=== PATIENT | male | born 1980 ===

== ENCOUNTER 2017-12-20 23:24 | Emergency (ER) | payer SELFPAY ==
[2017-12-20 23:53] VITALS: O2SAT 97
--- NOTE | 2017-12-21 00:27 | C.PDOC ---
History Of Present Illness 37 y/o male presents to the ED for evaluation of increased anxiety. He reports episodes of shaking, palpations, chest wall tightness and "feeling like something bad is going to happen" over the last two weeks ago. 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 The patient states he feels better now. He admits to having a Hx of depression but he denies any Hx of panic attacks. The patient reports increased stress due to work over the last month and poor sleep over the past two weeks. He denies any fever, swelling, cough, SI, HI or visual/auditory hallucinations. Time Seen by Provider: 12/20/17 23:39 Chief Complaint (Nursing): Anxiety History Per: Patient History/Exam Limitations: no limitations Onset/Duration Of Symptoms: Days Current Symptoms Are (Timing): Still Present Modifying Factor(s): None Associated Symptoms: Anxiety. denies: Suicidal Thoughts, Suicidal Plan Recent travel outside of the [place]: No Past Medical History Reviewed: Historical Data, Nursing Documentation, Vital Signs Vital Signs: Last Vital Signs Temp 98.2 F 12/21/17 01:14 Pulse 83 12/21/17 01:14 Resp 16 12/21/17 01:14 BP 123/73 12/21/17 01:14 Pulse Ox 97 12/21/17 01:14 - Medical History PMH: Depression Surgical History: No Surg Hx Family History: States: Hypertension Other Family History: Cancer - Social History Hx Tobacco Use: No Hx Alcohol Use: No Hx Substance Use: No Review Of Systems Except As Marked, All Systems Reviewed And Found Negative. Constitutional: Negative for: Fever Cardiovascular: Positive for: Chest Pain (tightness), Palpitations Neurological: Positive for: Other (shaking) Psych: Positive for: Anxiety, Other (poor sleep). Negative for: Suicidal ideation Physical Exam - Physical Exam Appears: Other (Anxious mood and affect ) Skin: Warm, Dry Head: Normacephalic, Tenderness Eye(s): bilateral: PERRL, EOMI Oral Mucosa: Moist Throat: No Erythema, No Exudate Neck: Normal ROM, Trachea Midline Lymphatic: No Adenopathy Chest: Symmetrical, No Tenderness Cardiovascular: Rhythm Regular, No Murmur Respiratory: Normal Breath Sounds, No Wheezing Gastrointestinal/Abdominal: Soft, No Tenderness Back: Normal Inspection, No Muscle Spasm Extremity: Normal ROM, No Deformity Neurological/Psych: Oriented x3, Normal Motor, Normal Sensation ED Course And Treatment - Laboratory Results Result Diagrams: 12/21/17 00:18 12/21/17 00:18 Lab Interpretation: Normal ECG: Interpreted By Me ECG Rhythm: Sinus Rhythm, R BBB ECG Interpretation: Normal O2 Sat by Pulse Oximetry: 97 (RA) Pulse Ox Interpretation: Normal Medical Decision Making Medical Decision Making: Impression: panic attack , anxiety differential diagnoses include but are not limited to: thyroid disorder, electrolyte decrease, acute stress reaction Labs unremarkable. Crisis assisted with resources for outpatient followup. 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 - Scribe Statement The provider has reviewed the documentation as recorded by the Scribe (Barby Gross) All medical record entries made by the Scribe were at my direction and personally dictated by me. I have reviewed the chart and agree that the record accurately reflects my personal performance of the history, physical exam, medical decision making, and the department course for this patient. I have also personally directed, reviewed, and agree with the discharge instructions and disposition.
[2017-12-21 00:46] LABS: BASO % 0.4 % (0.0-2.0); EOS # 0.1 K/uL (0.0-0.7); EOS % 0.9 % (0.0-4.0); HEMOGLOBIN 13.9 g/dL (12.0-18.0); LYMPH # 2.3 K/uL (1.0-4.3); LYMPH % 21.9 % (20.0-40.0); MEAN CELL VOLUME 86.9 fL (80.0-94.0); MEAN CORPUSCULAR HEMOGLOBIN 30.1 pg (27.0-31.0); MEAN CORPUSCULAR HGB CONC 34.6 g/dL (33.0-37.0); MEAN PLATELET VOLUME 9.5 fL (7.2-11.7); MONO # 0.6 K/uL (0.0-0.8); MONO % 6.2 % (0.0-10.0); NEUT # 7.4 K/uL (1.8-7.0); NEUT % 70.6 % (50.0-75.0); NRBC % 0.1 % (0.0-2.0); RBC 4.63 Mil/uL (4.40-5.90); RED CELL DISTRIBUTION WIDTH 12.8 % (11.5-14.5); WHITE BLOOD COUNT 10.5 K/uL (4.8-10.8)
[2017-12-21 00:57] LABS: ALB/GLOB RATIO 1.8 (1.0-2.1); ALBUMIN 4.6 g/dL (3.5-5.0); ALT/SGPT 47 U/L (21-72); AST/SGOT 21 U/L (17-59); BLOOD UREA NITROGEN 26 mg/dL (9-20); CALCIUM 9.3 mg/dl (8.6-10.4); GFR NON-AFRICAN AMERICAN > 60
[2017-12-21 01:15] VITALS: BP 123/73; PULSE 83; RESP 16; TEMP 98.2
--- NOTE | 2017-12-22 22:43 | CARD ---
APPROVED REPORT Date of service: 12/20/2017 EKG Measurement Heart [id number] NM [id number] [id number] <Conclusion> Normal sinus rhythm Left axis deviation Incomplete right bundle branch block Abnormal ECG
== END 2017-12-21 01:15 | disposition home or self-care (01) ==
LOC: C.ER 23:24
DX: F43.9 Reaction to severe stress, unspecified (principal); F41.9 Anxiety disorder, unspecified

== ENCOUNTER 2018-01-26 14:22 | Emergency (ER) | payer OTHER ==
--- NOTE | 2018-01-26 16:43 | C.PDOC ---
History Of Present Illness 37 year old male presents to the ED complaining of right sided chest pain that extends to his right lateral thorax for two days worsening over the past day. He denies any heavy lifting, recent travel, recent surgery, recent trauma/injury, leg swelling, calf tenderness or skin rash. The patient admits to having one episode of hemoptysis 2 weeks ago that resolved and he also admits to occasional SOB. Time Seen by Provider: 01/26/18 15:59 Chief Complaint (Nursing): Chest Pain History Per: Patient History/Exam Limitations: no limitations Onset/Duration Of Symptoms: Days Current Symptoms Are (Timing): Still Present Quality: Sharp, "Pain" Recent travel outside of the [place]: No Past Medical History Reviewed: Historical Data, Nursing Documentation, Vital Signs Vital Signs: Last Vital Signs Temp 98.7 F 01/26/18 14:27 Pulse 93 H 01/26/18 14:27 Resp 20 01/26/18 14:27 BP 135/90 01/26/18 14:27 Pulse Ox 97 01/26/18 14:27 - Medical History PMH: Depression Family History: States: Hypertension - Social History Hx Tobacco Use: No Hx Alcohol Use: No Hx Substance Use: No Review Of Systems Except As Marked, All Systems Reviewed And Found Negative. Constitutional: Negative for: Fever Cardiovascular: Positive for: Chest Pain (right sided) Respiratory: Positive for: Shortness of Breath, Other (one episode of hemoptysis that resolved on its own) Skin: Negative for: Rash Physical Exam - Physical Exam Additional Physical Exam Comments: Constitutional: No acute distress. Head: Normocephalic. Atraumatic. Eyes: PERRL. ENT: Moist mucous membranes. Neck: Supple. Cardiovascular: Regular rate. Radial pulse 2+ bilaterally. Chest: Right-sided digitally reproducible chest tenderness Respiratory: Clear to auscultation bilaterally. GI: Soft. Nontender. Nondistended. Back: No CVA tenderness. Musculoskeletal: No tenderness or swelling of extremities. Skin: No rash. Neurologic: Alert, no focal deficit. ED Course And Treatment - Laboratory Results Result Diagrams: 01/26/18 16:51 01/26/18 16:51 O2 Sat by Pulse Oximetry: 97 (RA) Pulse Ox Interpretation: Normal - Other Rad Chest X-Ray: Viewed By Me Interpretation: IMPRESSION: Mild venous congestion. Small nodular density at the right lung base may represent confluence of shadows with ribs and vessels. Medical Decision Making Medical Decision Making: EKG NSR 88 bpm, no ST elevations, right bundle morphology with narrow QRS Impression: 37 year old male presents to the ED complaining of right sided chest pain that extends to his right lateral thorax for two days worsening over the past day Plan: -EKG -CK-MB -CMP -Troponin I -CBC -D Dimer -Chest X-Ray -Toradol Well's score 1. D dimer negative. Discharged home, continue NSAIDs, f/u PMD, return to ED for worsening pain, fever, dyspnea, vomiting, or any other problem. Disposition - Disposition Disposition: HOME/ ROUTINE Disposition Time: 17:35 Condition: STABLE Prescriptions: Ibuprofen [Motrin] 600 mg PO Q6 #25 tab Instructions: Costochondritis (DC) Forms: [facility] (Thai) - Clinical Impression Clinical Impression: Chest wall pain - Scribe Statement The provider has reviewed the documentation as recorded by the Scribe (Barby delatorre) Provider Attestation: All medical record entries made by the Scribe were at my direction and personally dictated by me. I have reviewed the chart and agree that the record accurately reflects my personal performance of the history, physical exam, medical decision making, and the department course for this patient. I have also personally directed, reviewed, and agree with the discharge instructions and disposition.
[2018-01-26 16:55] LABS: BASO # 0.1 K/uL (0.0-0.2); BASO % 0.8 % (0.0-2.0); EOS # 0.1 K/uL (0.0-0.7); EOS % 1.2 % (0.0-4.0); HEMOGLOBIN 14.4 g/dL (12.0-18.0); LYMPH # 2.5 K/uL (1.0-4.3); LYMPH % 24.6 % (20.0-40.0); MEAN CELL VOLUME 88.6 fL (80.0-94.0); MEAN CORPUSCULAR HEMOGLOBIN 29.7 pg (27.0-31.0); MEAN CORPUSCULAR HGB CONC 33.6 g/dL (33.0-37.0); MEAN PLATELET VOLUME 8.8 fL (7.2-11.7); MONO # 0.7 K/uL (0.0-0.8); MONO % 6.4 % (0.0-10.0); NEUT # 6.9 K/uL (1.8-7.0); RBC 4.86 Mil/uL (4.40-5.90); RED CELL DISTRIBUTION WIDTH 13.7 % (11.5-14.5); WHITE BLOOD COUNT 10.3 K/uL (4.8-10.8)
[2018-01-26 17:15] LABS: ALB/GLOB RATIO 1.4 (1.0-2.1); ALBUMIN 4.4 g/dL (3.5-5.0); ALT/SGPT 41 U/L (21-72); AST/SGOT 32 U/L (17-59); BLOOD UREA NITROGEN 22 mg/dL (9-20); CALCIUM 9.5 mg/dl (8.6-10.4); GFR NON-AFRICAN AMERICAN > 60
[2018-01-26 17:27] LABS: CK-MB 0.28 ng/mL (0.0-3.38)
--- NOTE | 2018-01-26 17:29 | RAD ---
Date of service: 01/26/2018 HISTORY: Right sided chest pain COMPARISON: 08/09/2012 TECHNIQUE: Chest PA and lateral FINDINGS: LUNGS: Mild venous congestion. Small nodular density at the right lung base may represent confluence of shadows with ribs and vessels. PLEURA: No significant pleural effusion identified. No pneumothorax apparent. CARDIOVASCULAR: No atherosclerotic calcification present Normal. OSSEOUS STRUCTURES: No significant abnormalities. VISUALIZED UPPER ABDOMEN: Normal. OTHER FINDINGS: None. IMPRESSION: Mild venous congestion. Small nodular density at the right lung base may represent confluence of shadows with ribs and vessels.
[2018-01-26 17:55] VITALS: BP 129/92; PULSE 81; RESP 15; TEMP 98; O2SAT 99
--- NOTE | 2018-01-29 19:33 | CARD ---
APPROVED REPORT Date of service: 01/26/2018 EKG Measurement Heart [id number] OR 160P56 [id number] <Conclusion> Normal sinus rhythm Left axis deviation Incomplete right bundle branch block Abnormal ECG
== END 2018-01-26 17:55 | disposition home or self-care (01) ==
LOC: C.ER 14:22
DX: R07.89 Other chest pain (principal)
CPT/HCPCS: 71046; 80053; 82550; 82553; 84484; 85025; 85378; 93005; 96374; 99284; J1885

== ENCOUNTER 2018-06-20 09:25 | Emergency (ER) | payer OTHER ==
[2018-06-20 09:45] VITALS: BP 143/89; PULSE 81; RESP 21; TEMP 99.1; O2SAT 99
--- NOTE | 2018-06-20 09:57 | C.PDOC ---
History Of Present Illness 37 year old male presents to the ED for evaluation of swelling and mass to left upper eyelid. Patient reports feeling a lump to the area for one week, and now states his eyelid is starting to become heavy. Patient denies fever, chills, eye pain, blurry vision, redness, tearing or trauma to the area. Time Seen by Provider: 06/20/18 09:43 Chief Complaint (Nursing): Eye Problem History Per: Patient History/Exam Limitations: no limitations Onset/Duration Of Symptoms: Days Current Symptoms Are (Timing): Still Present Quality: denies: "Pain" Associated Symptoms: Swelling. denies: Pain, Decreased Vision Additional History Per: Patient Past Medical History Reviewed: Historical Data, Nursing Documentation, Vital Signs Vital Signs: Last Vital Signs Temp 99.1 F 06/20/18 09:41 Pulse 81 06/20/18 09:41 Resp 21 06/20/18 09:41 BP 143/89 06/20/18 09:41 Pulse Ox 99 06/20/18 09:41 - Medical History PMH: Depression Surgical History: No Surg Hx Family History: States: Hypertension - Social History Hx Tobacco Use: No Hx Alcohol Use: No Hx Substance Use: No - Immunization History Hx Tetanus Toxoid Vaccination: No Hx Influenza Vaccination: No Hx Pneumococcal Vaccination: No Review Of Systems Constitutional: Negative for: Fever, Chills Eyes: Positive for: Other (left upper eyelid swelling ). Negative for: Pain, Vision Change Physical Exam - Physical Exam Appears: Non-toxic, No Acute Distress Skin: Normal Color, Warm, Dry Head: Atraumatic, Normacephalic Eye(s): bilateral: PERRL, EOMI, right: Normal Inspection, left: Other (pea-sized mass to the lateral aspect of upper eyelid. no conjunctival injection ) Neurological/Psych: Normal Speech, Normal Cognition ED Course And Treatment O2 Sat by Pulse Oximetry: 99 (on RA) Pulse Ox Interpretation: Normal Disposition Counseled Patient/Family Regarding: Diagnosis, Need For Followup, Rx Given - Disposition Referrals: [facility] at [facility] [Outside] Horace Van MD [Staff Provider] - Disposition: HOME/ ROUTINE Disposition Time: 09:55 Condition: STABLE Additional Instructions: La receta se envio al [facility] [address] Prescriptions: Bacitracin [Bacitracin Opht OINT] 1 applic OS TID #1 tube Instructions: Stye (Hordeolum) Forms: Gen Discharge Inst Ivorian, [facility] (Ivorian), Work Excuse - POA Present On Arrival: None - Clinical Impression Clinical Impression: Hordeolum externum (stye) - Scribe Statement The provider has reviewed the documentation as recorded by the Scribe (Maribell hdz) Provider Attestation: All medical record entries made by the Scribe were at my direction and personally dictated by me. I have reviewed the chart and agree that the record accurately reflects my personal performance of the history, physical exam, medical decision making, and the department course for this patient. I have also personally directed, reviewed, and agree with the discharge instructions and disposition.
== END 2018-06-20 10:38 | disposition home or self-care (01) ==
LOC: C.ER 09:25
DX: H00.014 Hordeolum externum left upper eyelid (principal)

== ENCOUNTER 2018-09-03 01:08 | Emergency (ER) | payer SELFPAY ==
[2018-09-03 01:39] VITALS: RESP 16; O2SAT 98
--- NOTE | 2018-09-03 02:24 | C.PDOC ---
History Of Present Illness 37 year old male presents to the ED for evaluation of depression and SI. Patient reports his left him for another man and is suing him for child support. Patient became angry and wanted to kill himself, patient had no plan. Patient denies HI, hallucinations, other medical complaints at this time. Time Seen by Provider: 09/03/18 01:27 Chief Complaint (Nursing): Psychiatric Evaluation History Per: Patient, EMS History/Exam Limitations: no limitations Onset/Duration Of Symptoms: Days Current Symptoms Are (Timing): Still Present Associated Symptoms: Depression, Suicidal Thoughts. denies: Suicidal Plan Recent travel outside of the [place]: No Additional History Per: Patient, EMS Past Medical History Reviewed: Historical Data, Nursing Documentation, Vital Signs Vital Signs: Last Vital Signs Temp 98.3 F 09/03/18 01:26 Pulse 101 H 09/03/18 01:26 Resp 16 09/03/18 01:26 BP 120/83 09/03/18 01:26 Pulse Ox 98 09/03/18 01:26 Primary Care Provider: FAMILY PROVIDER,NO - Medical History PMH: Depression Surgical History: No Surg Hx Family History: States: Hypertension - Social History Hx Tobacco Use: No Hx Alcohol Use: No Hx Substance Use: No - Immunization History Hx Tetanus Toxoid Vaccination: No Hx Influenza Vaccination: No Hx Pneumococcal Vaccination: No Review Of Systems Constitutional: Negative for: Fever, Chills Eyes: Negative for: Vision Change Cardiovascular: Negative for: Chest Pain Respiratory: Negative for: Shortness of Breath Gastrointestinal: Negative for: Vomiting, Abdominal Pain Skin: Negative for: Rash Psych: Positive for: Depression, Suicidal ideation Physical Exam - Physical Exam Appears: Non-toxic, No Acute Distress Skin: Normal Color, Warm, Dry Head: Atraumatic, Normacephalic Eye(s): bilateral: Normal Inspection Neck: Normal ROM, Supple Chest: Symmetrical Cardiovascular: Rhythm Regular Respiratory: Normal Breath Sounds, No Rales, No Rhonchi, No Wheezing Extremity: Bilateral: Atraumatic, Normal ROM Neurological/Psych: Oriented x3, Normal Speech, Normal Cognition Gait: Steady ED Course And Treatment - Laboratory Results Result Diagrams: 09/03/18 02:43 09/03/18 02:43 O2 Sat by Pulse Oximetry: 98 (ON RA) Pulse Ox Interpretation: Normal Medical Decision Making Medical Decision Making: Plan: * Labs * UA * Crisis * 1:1 Obs Disposition Counseled Patient/Family Regarding: Studies Performed, Diagnosis, Need For Followup - Disposition Referrals: [facility] [Outside] Disposition: HOME/ ROUTINE Disposition Time: 03:26 Condition: STABLE Instructions: Depression, Adult (DC), Alcohol Abuse and Alcoholism (DC), Adjustment Disorder Forms: Gen Discharge Inst Turkish, [employer] (Turkish) Print Language: POLISH - POA Present On Arrival: None - Clinical Impression Clinical Impression: Alcohol abuse, Alcohol intoxication, Depression, Adjustment disorder, Elevated liver enzymes - Scribe Statement The provider has reviewed the documentation as recorded by the Scribe Joesph Recinos All medical record entries made by the Scribe were at my direction and personally dictated by me. I have reviewed the chart and agree that the record accurately reflects my personal performance of the history, physical exam, medical decision making, and the department course for this patient. I have also personally directed, reviewed, and agree with the discharge instructions and disposition.
[2018-09-03 02:50] LABS: SQUAMOUS EPITHIAL < 1 /hpf (0-5); URINE BILIRUBIN NEGATIVE (NEGATIVE); URINE BLOOD NEGATIVE (NEGATIVE); URINE CLARITY Clear (Clear); URINE COLOR Straw (YELLOW); URINE GLUCOSE (UA) NORMAL (Normal); URINE LEUKOCYTE ESTERASE NEG Leu/uL (Negative); URINE PROTEIN NEGATIVE (NEGATIVE); URINE UROBILINOGEN NORMAL mg/dL (0.2-1.0)
[2018-09-03 03:00] LABS: ALB/GLOB RATIO 1.6 (1.0-2.1); ALBUMIN 4.6 g/dL (3.5-5.0); ALT/SGPT 108 U/L (21-72); AST/SGOT 74 U/L (17-59); BLOOD UREA NITROGEN 12 mg/dL (9-20); CALCIUM 8.9 mg/dl (8.6-10.4); GFR NON-AFRICAN AMERICAN > 60
[2018-09-03 03:04] LABS: BASO # 0.1 K/uL (0.0-0.2); BASO % 0.6 % (0.0-2.0); EOS # 0.1 K/uL (0.0-0.7); EOS % 1.4 % (0.0-4.0); HEMOGLOBIN 15.2 g/dL (12.0-18.0); LYMPH # 3.5 K/uL (1.0-4.3); LYMPH % 32.8 % (20.0-40.0); MEAN CELL VOLUME 89.5 fL (80.0-94.0); MEAN CORPUSCULAR HEMOGLOBIN 31.1 pg (27.0-31.0); MEAN CORPUSCULAR HGB CONC 34.8 g/dL (33.0-37.0); MEAN PLATELET VOLUME 9.6 fL (7.2-11.7); MONO # 0.7 K/uL (0.0-0.8); MONO % 6.1 % (0.0-10.0); NEUT # 6.3 K/uL (1.8-7.0); NEUT % 59.1 % (50.0-75.0); NRBC % 0.2 % (0.0-2.0); RBC 4.88 Mil/uL (4.40-5.90); RED CELL DISTRIBUTION WIDTH 12.8 % (11.5-14.5); WHITE BLOOD COUNT 10.7 K/uL (4.8-10.8)
[2018-09-03 03:04] LABS: BARBITURATES, UR NEGATIVE (NEGATIVE); BENZODIAZEPINES, UR NEGATIVE (NEGATIVE); OPIATES, UR NEGATIVE (NEGATIVE); PHENCYCLIDINE, UR NEGATIVE (NEGATIVE)
[2018-09-03 05:03] VITALS: BP 112/66; PULSE 80; TEMP 97.9
== END 2018-09-03 05:22 | disposition home or self-care (01) ==
LOC: C.ER 01:08
DX: F10.129 Alcohol abuse with intoxication, unspecified (principal); F43.20 Adjustment disorder, unspecified; F32.9 Major depressive disorder, single episode, unspecified; R74.8 Abnormal levels of other serum enzymes
CPT/HCPCS: 80053; 81001; 83735; 84100; 85025; 99284; G0480